=== PATIENT | female | born 1980 | race Two or more races ===

== ENCOUNTER → 2024-02-21 | Day surgery (SDC) | payer OTHER ==
[2024-02-16 08:31] LABS: PH,URINE 5.5 (5.0-8.0); URINE APPEARANCE Clear; URINE BILIRRUBIN Negative (NEGATIVE); URINE BLOOD Negative; URINE COLOR Yellow; URINE GLUCOSE Negative (NEGATIVE); URINE LEUKOCYTE Negative; URINE NITRATE Negative; URINE PROTEIN Negative (NEGATIVE); URINE UROBILINOGEN 0.2 E.U./dl
[2024-02-16 08:31] LABS: HEMATOCRIT 34.6 % (36.0-45.00); HEMOGLOBIN 11.5 g/dL (12.0-15.00); MEAN CELL VOLUME 81.9 fL (80.00-100.00); MEAN CORPUSCULAR HEMOGLOBIN 27.2 pg (27.00-32.0); MEAN CORPUSCULAR HGB CONC 33.2 g/dl (32.0-36.0); PLATELET COUNT 308 K/uL (150-450); RED BLOOD COUNT 4.22 M/uL (4.00-6.00)
[2024-02-16 08:35] LABS: URINE BACTERIA 2896.3 uL (0.0-1933); URINE EPITHELIAL CELLS 31.9 uL (0.0-38.8); URINE RBC 14.8 uL (0.0-20.8); URINE WBC 15.7 uL (0.0-23.2)
[2024-02-16 09:00] LABS: INR 1.02; PARTIAL THROMBOPLASTIN TIME 30.9 SECONDS (22.0-34.0); PROTHROMBIN TIME 10.7 SECONDS (9.0-11.5)
[2024-02-16 09:23] LABS: ALBUMIN 3.9 gm/dL (3.4-5.0); BILIRUBIN TOTAL 1.1 mg/dL (0.3-1.2); CREATININE SERUM 0.73 mg/dL (0.55-1.02); GFR 86.61; GLOBULINA 3.8 G/DL (2.4-3.5); POTASSIUM 4.38 mEq/L (3.5-5.1); TOTAL PROTEIN 7.7 gm/dL (6.4-8.2)
[~2024-02-21] VITALS: Ht 162.6 cm; Wt 90.7 kg
[~2024-02-21] MED LIST: CEFAZOLIN SODIUM 1,000 MG VIAL IV SCH; CEFAZOLIN SODIUM 1,000 MG VIAL ONE; FAMOTIDINE/PF 20 MG/10 ML SYRINGE IV SCH; FAMOTIDINE/PF 20 MG/2 ML VIAL ONE; SUGAMMADEX SODIUM 200 MG/2 ML VIAL IV ONE
== END | disposition home or self-care (01) ==
LOC: ADM 02-16 07:45 → CIR.AMB 07:45
PROVIDERS: ATTEND Specialist
DX: D21.11 Benign neoplasm of connective and other soft tissue of right upper limb, including shoulder (principal)